=== PATIENT | female | born 1980 | race Caucasian/White ===

== ENCOUNTER 2016-10-02 12:28 | Emergency (ER) | payer BC | END 2016-10-02 12:45 | disposition left against medical advice (07) | LOC: ER1 12:28 | DX: Z53.21 Procedure and treatment not carried out due to patient leaving prior to being seen by health care provider (principal) | CPT/HCPCS: 93005 ==

== ENCOUNTER → 2020-10-15 | Outpatient (CLI) | payer BC | LOC: KOH-I 08:00 | DX: G47.9 Sleep disorder, unspecified (principal) | CPT/HCPCS: 70450 ==